=== PATIENT | female | born 1960 | race American Indian/Alaskan Native ===

== ENCOUNTER 2018-10-04 08:23 | Outpatient (CLI) | payer BC ==
[2018-10-04 09:17] LABS: Blood Urea Nitrogen 11 mg/dL (7-17)
--- NOTE | 2018-10-04 12:34 | Cat Scan Report ---
CT ABDOMEN PELVIS WITH CONTRAST: HISTORY: Right lower quadrant abdominal pain. COMPARISON: Pelvic ultrasound dated 08/20/18. TECHNIQUE: Helical CT in 1.25mm intervals following IV contrast. Sagittal and coronal reconstructions. FINDINGS: Lung bases: Normal. Liver: Normal. Biliary system: Cholecystectomy. No biliary dilatation. Pancreas: Normal. Spleen: Normal. Kidneys/ureters/bladder: Normal. Adrenal glands: Normal. Aorta: Normal. Intestines: Normal. Appendix: Normal. Pelvic viscera: An approximate 3.4 cm fibroid is identified in the posterior uterine fundus. No endometrial abnormality is detected on CT. The adnexa are within normal limits. Ascites: None. Adenopathy: None. Musculoskeletal: Intact. Mild thoracolumbar spondylosis is identified. A small umbilical hernia containing fat is also identified. IMPRESSION: No acute process is identified in the abdomen or pelvis. No clear explanation for right lower quadrant abdominal pain. Uterine fibroid. Cholecystectomy. Small umbilical hernia containing fat.
== END 2018-10-04 08:24 | disposition home or self-care (01) ==
LOC: CT 08:23
PROVIDERS: ATTEND Internal Medicine Gastroenterology
DX: K42.9 Umbilical hernia without obstruction or gangrene (principal); D25.9 Leiomyoma of uterus, unspecified; Z90.49 Acquired absence of other specified parts of digestive tract; Z88.2 Allergy status to sulfonamides; Z91.018 Allergy to other foods
CPT/HCPCS: 36415; 74177; 82565; 84520; Q9967

== ENCOUNTER 2019-04-08 09:45 | Outpatient (CLI) | payer BC ==
[2019-04-08 10:08] LABS: Basophils % (Auto) 0.3 % (0.0-1.8); Eosinophils # (Auto) 0.1 K/mm3 (0.0-0.4); Eosinophils % (Auto) 1.8 % (0.0-4.3); Hematocrit 37.9 % (30.3-42.9); Hemoglobin 12.8 gm/dl (10.1-14.3); Lymphocytes # (Auto) 2.5 K/mm3 (1.2-5.4); Lymphocytes % (Auto) 33.2 % (13.4-35.0); Mean Corpuscular HGB Conc 34 % (30-34); Mean Corpuscular Volume 84 fl (79-97); Monocytes # (Auto) 0.6 K/mm3 (0.0-0.8); Monocytes % (Auto) 8.1 % (0.0-7.3); Platelet Count 377 K/mm3 (140-440); Red Blood Count 4.52 M/mm3 (3.65-5.03); Red Cell Distribution Width 14.2 % (13.2-15.2)
[2019-04-08 10:36] LABS: Alanine Aminotransferase 21 units/L (7-56); Albumin 4.1 g/dL (3.9-5); BUN/Creatinine Ratio 14; Blood Urea Nitrogen 10 mg/dL (7-17); Calcium 9.8 mg/dL (8.4-10.2); Hemolysis Index 5
== END 2019-04-08 09:46 | disposition home or self-care (01) ==
LOC: LAB 09:45
PROVIDERS: ATTEND Internal Medicine
DX: R53.83 Other fatigue (principal)
CPT/HCPCS: 36415; 80053; 82607; 84443; 85025

== ENCOUNTER 2019-06-26 10:39 | Outpatient (CLI) | payer BC ==
--- NOTE | 2019-06-26 11:50 | Magnetic Resonance Report ---
MRI RIGHT KNEE WITHOUT CONTRAST INDICATION / CLINICAL INFORMATION: [id number]) PAIN RIGHT KNEE. Medial right knee pain COMPARISON: None available. TECHNIQUE: Multiplanar, multisequence MR images were obtained. FINDINGS: ACL: No significant abnormality. PCL: No significant abnormality. DISTAL QUADRICEPS TENDON: No significant abnormality. PATELLAR TENDON: No significant abnormality. MEDIAL MENISCUS: The posterior horn of the medial meniscus is truncated with abnormal configuration c onsistent with a complex tear. The anterior horn and body of the medial meniscus appear intact. LATERAL MENISCUS: No significant abnormality. POSTEROLATERAL CORNER: No significant abnormality. MCL: No significant abnormality. LCL: No significant abnormality. DISTAL IT BAND: No significant abnormality. PATELLOFEMORAL ALIGNMENT: No significant abnormality. ARTICULAR CARTILAGE: There is moderate diffuse cartilage thinning in the medial compartment. No large focal full-thickness cartilage defect is identified. The lateral compartment and patellofemoral spac e cartilage are within normal limits. JOINT SPACE: Small to medium joint effusion extends to the suprapatellar bursa. No significant poplit eal cyst. No intra-articular bodies. BONES: There is mild subchondral bone marrow edema in the medial femoral condyle laterally consistent with contusion. No osteochondral defect. No fracture. No osseous lesion. SUBCUTANEOUS SOFT TISSUES: No significant abnormality. ADDITIONAL FINDINGS: None. IMPRESSION: Medial meniscal tear, posterior horn. Mild to moderate osteoarthritic joint space narrowing in the medial compartment. Small to medium joint effusion. Signer Name: Jin Thomas Jr, MD Signed: 06/26/2019 11:45 AM Workstation Name: [id number]
== END 2019-06-26 10:40 | disposition home or self-care (01) ==
LOC: MRI 10:39
PROVIDERS: ATTEND Orthopaedic Surgery
DX: M25.561 Pain in right knee (principal)
CPT/HCPCS: 73721

== ENCOUNTER 2019-08-11 11:00 | Outpatient (CLI) | payer BC | END 2019-08-11 11:01 | disposition home or self-care (01) | LOC: SLR 11:00 | PROVIDERS: ATTEND Internal Medicine | DX: G47.33 Obstructive sleep apnea (adult) (pediatric) (principal); R06.83 Snoring | CPT/HCPCS: 95810 ==

== ENCOUNTER 2019-09-04 11:00 | Outpatient (CLI) | payer BC | END 2019-09-04 11:01 | disposition home or self-care (01) | LOC: SLR 11:00 | PROVIDERS: ATTEND Internal Medicine | DX: G47.33 Obstructive sleep apnea (adult) (pediatric) (principal); Z88.6 Allergy status to analgesic agent; Z88.1 Allergy status to other antibiotic agents; Z88.8 Allergy status to other drugs, medicaments and biological substances | CPT/HCPCS: 95811 ==